=== PATIENT | female | born 1930 | race Caucasian/White ===

== ENCOUNTER 2019-06-28 17:46 | Emergency (ER) | payer MEDICARE, BC ==
[~2019-06-28] VITALS: Ht 164.5 cm; Wt 45.0 kg
[2019-06-28] MEDS ORDERED: cocaine 4% topical solution 4ml bottle MM ONE (18:15)
[2019-06-28] MEDS ORDERED: phenylephrine 0.5% nose drops 15ml NS PRN (18:30)
[2019-06-28 19:53] VITALS: BP 146/72
== END 2019-06-28 19:58 | disposition home or self-care (01) ==
LOC: ER 17:46
DX: R04.0 Epistaxis (principal)
CPT/HCPCS: 99283